=== PATIENT | male | born 1965 | race Two or more races ===

== ENCOUNTER → 2017-01-10 | Day surgery (SDC) | payer MEDICARE, OTHER ==
[~2017-01-10] VITALS: Ht 180.3 cm; Wt 104.5 kg
[~2017-01-10] MED LIST: BUPIVACAINE HCL PF 0.5% 30 ML VIAL INFIL ONE; BUPIVACAINE HCL PF 0.5% 30 ML VIAL ONE; CHLORHEXIDINE GLUCONATE 2 % 1 PACK (2 CLOTHS) TOPICAL PRN; DEXT 5%-NACL 0.45% 1000 ML INJ 1,000 ML IV SCH; FAMOTIDINE 20 MG/2 ML VIAL ONE; HYDR-3113 PO; IBUP800T23 PO; INSULIN HUMAN REGULAR 1,000 UNITS/10 ML VIAL SQ PRN; LACTATED RINGER'S 1000 ML INJ 1,000 ML IV ONE; LACTATED RINGER'S 1000 ML IV PRN; LIPI40TA PO; MEDR4PAK PO; METOPROLOL TARTRATE 25 MG TAB PO PRN; MIDAZOLAM HCL 2 MG/2 ML VIAL ONE; ONDANSETRON HCL 4 MG/2 ML VIAL IV PUSH ONE; PHENYLEPH/NS 1000 MCG/10 ML SYR IV ONE; POVIDONE IODINE 10% OINT 1 PACKET TOPICAL ONE; POVIDONE IODINE 5% (ANTISEPSIS KIT) 4 APPLICATIONS EACH NARE PRN; PROPOFOL 200 MG/20 ML AMP IV ONE; SODIUM CHLORID 0.9% 500 ML IV PRN; SODIUM CHLORIDE 0.9% FLUSH 5 ML FLUSH IVF PRN; SODIUM CHLORIDE 0.9% FLUSH 5 ML FLUSH IVF SCH; XANA1TAB2 PO; ceFAZolin 2 GM PREMIX 50 ML IV SCH; ePHEDrine/NS 25 MG/5 ML SYR IV ONE; fentaNYL CITRATE 250 MCG/5 ML AMP ONE
[2017-01-10 07:22] VITALS: BP 121/79; PULSE 63; RESP 20; TEMP 97.9; O2SAT 97
[2017-01-10 07:41] LABS: HEMATOCRIT 41.6 % (39.0-51.0); MEAN CORPUSCULAR HGB CONC 34.7 % (32.0-36.0); PLATELET COUNT 187 TH/MM3 (150-450); RED BLOOD COUNT 4.38 MIL/MM3 (4.50-5.90); RED CELL DISTRIBUTION WIDTH 12.5 % (11.6-17.2); REVIEW FLAG FINAL; WHITE BLOOD COUNT 9.4 TH/MM3 (4.0-11.0)
--- NOTE | 2017-01-10 07:59 | HP.UPD ---
H&P Update Date: Jan 10, 2017 Note The Pre-Admit History and Physical Examination regarding the above named patient was reviewed (including, but not limited to, vital signs, medications, allergies, co-morbid conditions), and upon re-examination it is noted that: Indicated with "X" x - the patient's condition has not significantly changed since the last examination. [] - the patient's condition has changed since the last examination. Changes: Marii Jackson MD Jan 10, 2017 07:59
[2017-01-10 10:05] VITALS: PULSE 74
--- NOTE | 2017-01-10 10:13 | HHI.PR ---
Immediate Post Op Note Procedure Date: Jan 10, 2017 Pre Op Diagnosis: (1) CTS (carpal tunnel syndrome) (2) Acquired trigger finger Post Op Diagnosis: (1) CTS (carpal tunnel syndrome) (2) Acquired trigger finger Surgeon: Marii Jackson Copier Technician(s): None Procedure: 1. Open release of both carpal tunnels. 2. Release of the left trigger thumb Anesthesia: General Drains: None Tourniquet time (min at mmHg) 24 minutes on the right at 220 mmHg. 32 minutes on the left at 220 mmHg. Patient to: PACU Patient Condition: Good Date/Time of Procedure: SEE SURGICAL CARE RECORD Marii Jackson MD Jan 10, 2017 10:13
[2017-01-10 10:45] VITALS: PULSE 82; TEMP 97.8
[2017-01-10 11:20] VITALS: BP 114/75; PULSE 74; RESP 14; O2SAT 94
--- NOTE | 2017-01-10 12:17 | EKG ---
Date Performed: 01/10/2017 Time Performed: 07:22:25 PTAGE: 51 years EKG: Sinus rhythm INCOMPLETE RIGHT BUNDLE BRANCH BLOCK BORDERLINE ECG NO PREVIOUS TRACING DOCTOR: Tam Martin Interpretating Date/Time 01/10/2017 12:15:55
--- NOTE | 2017-01-10 18:44 | MP ---
cc: SINDI GONSALEZ MD DATE OF SURGERY 01/10/17 PREOPERATIVE DIAGNOSIS 1. Left carpal tunnel syndrome. 2. Right carpal tunnel syndrome 3. Stenosing tenosynovitis of the left thumb. POSTOPERATIVE DIAGNOSIS 1. Left carpal tunnel syndrome. 2. Right carpal tunnel syndrome 3. Stenosing tenosynovitis of the left thumb. PROCEDURES 1. Open release of the right carpal tunnel 2. Open release of the left carpal tunnel 3. Open release of the left trigger thumb. ANESTHESIA General SURGEON Dr. Fatmata Gonsalez INDICATIONS A 51-year-old male with bilateral carpal tunnel syndrome and trigger thumb who requested to have both carpal tunnels released. He had bilateral carpal tunnel syndromes. In addition, he did have stenosing tenosynovitis of left thumb. The patient did want them released at the same time. He was made aware of the difficulties in having both hands operated on, but insisted on proceeding. TOURNIQUET TIME On the right hand was 24 minutes, on the left hand was 32 minutes PROCEDURE IN DETAIL The patient was seen preoperatively where the sites and sides were identified and marked. The patient was then taken to the operating room, placed in a supine position. His identity was checked against the arm band and the consent form, sites and sides confirmed, time-out called prior to beginning the procedure. Both upper extremities were prepped with Hibiclens and draped in the usual sterile fashion. Attention was first turned to the right upper extremity. The area to be incised was outlined with a marking pen as a longitudinal incision just to the ulnar side of the midline. A median nerve block was affected using bupivacaine 0.5% plain. The arm was exsanguinated and the tourniquet inflated to 220 mmHg. This was a forearm tourniquet. A #15 blade was used to make the incision down through the skin down to the subcutaneous tissue down to the palmar fascia. Small vessels were cauterized with bipolar cautery. Distally a small hole was poked in the palmar fascia and, using the ulnar artery as a guide, Guyon's canal was released. The ulnar nerve was retracted ulnarly, the median nerve retracted medially and, using the flexor tendon to the ring finger as a guide, the transverse carpal ligament was divided. Once the forearm fascia was reached, the scissor was kept in a slightly open position. Using the push technique, the forearm fascia was released for several centimeters at the distal forearm. The nerve was then carefully from the roof of the tunnel and epineurolysis was performed under loupe magnification. Once the nerve was completely freed and any scar tissue removed, the additional anesthetic Bupivacaine 0.5% plain was injected into the operated areas and the wound was copiously irrigated with saline. It was then closed with a running 4-0 nylon suture. Tourniquet was released after 24 minutes of tourniquet time. Pressure was applied for several minutes. There was no evidence of any oozing. A dressing was applied using povidone-iodine ointment, Adaptic, Telfa and Anthony. Attention was then turned to the left hand which was exsanguinated and a tourniquet inflated to 220 mmHg. Bupivacaine 0.5% plain was used to make a median nerve block. A #15 blade was then used to make an incision just to the ulnar side of the midline down through the skin down to the subcutaneous tissue down to the palmar fascia. Distally a small hole was poked in the palmar fascia and, using the ulnar artery as a guide, Guyon's canal was released. The ulnar nerve was retracted ulnarly, the median nerve retracted medially and, using the flexor tendon to the ring finger as a guide, the transverse carpal ligament was divided. Once the forearm fascia was reached, the scissor was kept in a slightly open position. Using the push technique, the forearm fascia was released for several centimeters into the distal forearm. The median nerve was then carefully from the roof of the tunnel and a epineurolysis was performed under loupe magnification. Once the scar tissue had been removed and the nerve was mobilized, the wound was copiously irrigated with saline and then injected with additional bupivacaine 0.5% plain. The wound was closed with a running 4-0 nylon suture. Attention was the turned to the thumb where a new 15 blade was used to make a transverse incision at the base of the thumb on the volar aspect down through the skin down to the subcutaneous tissue. Under loupe magnification using a spread technique, the tendon sheath was identified. The A1 madeline was then identified and divided. It was also divided proximally until there was no encumbrance to the movement of the flexor tendon. The wound was then copiously irrigated with saline, injected with bupivacaine 0.5% plain and closed with a 4-0 nylon suture. Once the wound was closed, the tourniquet was released after 32 minutes of tourniquet time. Pressure was applied to both wounds. After several minutes there was no evidence of any oozing. A dressing was applied to each using povidone-iodine ointment, Adaptic, Telfa, 4x4s and hand wrap. The patient was then taken from the operating room to the recovery room in satisfactory condition having tolerated the procedure well. Postoperative instructions include keeping the arm elevated, keeping it clean and dry and returning in several days for follow up. The patient will be given a prescription for ibuprofen 800 mg. Of note, once procedure was over the hand wrap 3 inch was placed over the right hand which just Anthony. MD AVRIL Crawford/ /10:13 AM /6:18 PM
== END | disposition home or self-care (01) ==
LOC: PHSDC 06:34
PROVIDERS: ATTEND Specialist
DX: G56.03 Carpal tunnel syndrome, bilateral upper limbs (principal); M65.312 Trigger thumb, left thumb; E78.5 Hyperlipidemia, unspecified; F17.200 Nicotine dependence, unspecified, uncomplicated; Z95.5 Presence of coronary angioplasty implant and graft; Z98.1 Arthrodesis status; Z79.899 Other long term (current) drug therapy
CPT/HCPCS: 01810; 26055; 36415; 64721; 85027; 93005; J0690; J2250; J2370; J2405; J3010; J7120